=== PATIENT | male | born 1990 | race Caucasian/White ===

== ENCOUNTER 2016-06-07 10:26 | Emergency (ER) | payer OTHER ==
[~2016-06-07] VITALS: Ht 175.3 cm; Wt 93.6 kg
[2016-06-07 11:22] VITALS: BP 148/84
== END 2016-06-07 11:22 ==
LOC: EXP 10:26 → EME 10:26 → EDBD 10:26 → EXP 11:22
PROC: 0HQGXZZ Repair Left Hand Skin, External Approach (ICD-10-PCS; principal; 2016-06-07)
DX: S61.412A Laceration without foreign body of left hand, initial encounter (principal); W31.1XXA Contact with metalworking machines, initial encounter; Y92.148 Other place in prison as the place of occurrence of the external cause; Y99.8 Other external cause status; Y93.89 Activity, other specified; F17.200 Nicotine dependence, unspecified, uncomplicated
CPT/HCPCS: 99281; 99283